=== PATIENT | male | born 1980 | race Caucasian/White ===

== ENCOUNTER 2017-10-15 14:49 | Emergency (ER) | payer BC ==
[2017-10-15 15:05] VITALS: BP 146/95
--- NOTE | 2017-10-15 15:11 | UC ---
Skin Complaint HPI - History of Current Complaint Chief Complaint: UCUpperExtremity Time Seen by Provider: 10/15/17 15:10 Stated Complaint: BUG BITE,INFLAMED Pain Intensity: 6 - Allergy/Home Medications Allergies/Adverse Reactions: Allergies Allergy/AdvReac Type Severity Reaction Status Date / Time No Known Allergies Allergy Verified 10/15/17 15:06 Home Medications: Home Medications Ibuprofen TAB* [Motrin TAB* 400 MG] 400 mg PO Q6H PRN 10/15/17 [History Confirmed 10/15/17] PMH/Surg Hx/FS Hx/Imm Hx Other History Of: Negative For: HIV, Hepatitis B, Hepatitis C, Anticoagulant Therapy - Surgical History Surgical History: None - Family History Known Family History: Positive: Hypertension Negative: Renal Disease, Blood Disorder - Social History Alcohol Use: Daily Alcohol Amount: 2 glasses of wine / day Substance Use Type: None Smoking Status (MU): Never Smoked Tobacco Physical Exam Vital Signs: Initial Vital Signs Temp 99.6 F 10/15/17 15:00 Pulse 83 10/15/17 15:00 Resp 16 10/15/17 15:00 BP 146/95 10/15/17 15:00 Pulse Ox 100 10/15/17 15:00 Discharge - Discharge Plan Referrals: No Primary Care Phys,NOPCP [Primary Care Provider] -
[2017-10-15] MEDS ORDERED: Ketorolac INJ* 60 MG/2 ML VIAL IM ONE (15:19)
--- NOTE | 2017-10-15 15:27 | UC ---
Skin Complaint HPI - HPI Summary HPI Summary: This pt is a 37 y/o male presenting to [facility] c/o right elbow pain, redness, and swelling. Pt reports his swelling has increased on right elbow. He additionally notes decreased ROM of right elbow and increased in warmth. He rates his pain 4/ 10 in severity. Denies weakness, numbness, fever. Pt also c/o right TMJ pain. Pt has taken ibuprofen and used ice for pain with minimal relief. - History of Current Complaint Chief Complaint: UCUpperExtremity Time Seen by Provider: 10/15/17 15:10 Stated Complaint: BUG BITE,INFLAMED Hx Obtained From: Patient Onset/Duration: Lasting Days, Still Present Current Severity: Moderate Pain Intensity: 4 Pain Scale Used: 0-10 Numeric Location: Other - R elbow Character: Swelling, Pain, Redness Aggravating Factor(s): Nothing Alleviating Factor(s): Nothing Associated Signs & Symptoms: Negative: Nausea, Vomiting, Weakness, Fever, Chills , Rash - Allergy/Home Medications Allergies/Adverse Reactions: Allergies Allergy/AdvReac Type Severity Reaction Status Date / Time No Known Allergies Allergy Verified 10/15/17 15:06 Review of Systems Constitutional: Negative Skin: Other - redness on R elbow, increase in warmth of R elbow Eyes: Negative ENT: Other - Right TMJ pain Respiratory: Negative Cardiovascular: Negative Gastrointestinal: Negative Genitourinary: Negative Motor: Negative Musculoskeletal: Arthralgia - R elbow, Decreased ROM - R elbow, Edema - R elbow Neurological: Negative Psychological: Negative All Other Systems Reviewed And Are Negative: Yes PMH/Surg Hx/FS Hx/Imm Hx Other Endocrine History: DENIES: diabetes Other Cardiovascular History: DENIES: HTN Other History Of: Negative For: HIV, Hepatitis B, Hepatitis C, Anticoagulant Therapy - Surgical History Surgical History: None - Family History Known Family History: Positive: Hypertension Negative: Renal Disease, Blood Disorder - Social History Alcohol Use: Daily Alcohol Amount: 2 glasses of wine / day Substance Use Type: None Smoking Status (MU): Never Smoked Tobacco Physical Exam - Summary Physical Exam Summary: VITAL SIGNS: Reviewed. GENERAL: Patient is a well-developed and nourished male who is lying comfortable in the stretcher. Patient is not in any acute respiratory distress. HEAD AND FACE: Normocephalic. Possible TMJ disorder on the right side. EYES: PERRLA, EOMI x 2. EARS: Hearing grossly intact. MOUTH: Oropharynx within normal limits. NECK: Supple, trachea is midline, no adenopathy, no JVD, no carotid bruit. CHEST: Symmetric, no tenderness at palpation LUNGS: Clear to auscultation bilaterally. No wheezing or crackles. CVS: Regular rate and rhythm, S1 and S2 present, no murmurs or gallops appreciated. ABDOMEN: Soft, non-tender. Bowel sounds are normal. No abdominal abnormal pulsations. EXTREMITIES: no cyanosis or clubbing. RUE: pt has swelling and erythema of right elbow. Pt has decreased ROM of right elbow. NEURO: Alert and oriented x 3. No acute neurological deficits. Speech is normal and follows commands. SKIN: Dry and warm. Triage Information Reviewed: Yes Vital Signs: Initial Vital Signs Temp 99.6 F 10/15/17 15:00 Pulse 83 10/15/17 15:00 Resp 16 10/15/17 15:00 BP 146/95 10/15/17 15:00 Pulse Ox 100 10/15/17 15:00 Vital Signs Reviewed: Yes Course/Dx - Course Course Of Treatment: Pt is a 37 y/o male presenting to [facility] c/o right elbow pain , redness, and swelling. Pt reports his swelling has increased on right elbow. He additionally notes decreased ROM of right elbow and increased in warmth. He rates his pain 4/10 in severity. Denies weakness, numbness, fever. Pt also c/o right TMJ pain. Pt has taken ibuprofen and used ice for pain with minimal relief. In the UC course the pt was given a Toradol injection. Pt will be discharged home with prescriptions for Keflex to treat cellulitis and ibuprofen for the pain. He was instructed to return to the urgent care or go to ER immediately if any of the symptoms return or worsens. Plan of care was discussed with the patient and pt understands and agrees. All questions were answered to patient satisfaction. There were no further complaints or concerns. Pt will be discharged to home with follow up from PCP. Pt is hemodynamically stable, alert and oriented x3. The patient was found to have increased blood pressure in UC. The patient will follow up with PCP for better control of BP. - Diagnoses Provider Diagnoses: 1. Cellulitis. 2. TMJ pain Discharge - Sign-Out/Discharge Documenting (check all that apply): Patient Departure - Discharge - Discharge Plan Condition: Stable Disposition: HOME Prescriptions: Cephalexin CAP* [Keflex CAP*] 500 mg PO QID #40 cap Ibuprofen TAB* [Motrin TAB* 600 MG] 600 mg PO Q8H PRN #30 tab PRN Reason: Pain Patient Education Materials: Cellulitis (ED), Temporomandibular Disorder (ED) Referrals: [facility] [Outside] No Primary Care Phys,NOPCP [Primary Care Provider] - Additional Instructions: Take medications as instructed and adhere to plan Take Acetaminophen or ibuprofen for pain or fever Increase your fluid intake Return to the or go to the emergency department if symptoms worsen Follow-up with primary care physician in next 2-3 days
== END 2017-10-15 16:08 | disposition home or self-care (01) ==
LOC: UCEAST 14:49
DX: L03.113 Cellulitis of right upper limb (principal); M26.621 Arthralgia of right temporomandibular joint; Z82.49 Family history of ischemic heart disease and other diseases of the circulatory system
CPT/HCPCS: 96372; 99211; G0463; J1885

== ENCOUNTER 2017-10-27 15:37 | Emergency (ER) | payer BC ==
[2017-10-27 15:48] VITALS: BP 141/99
--- NOTE | 2017-10-27 16:09 | UC ---
Upper Extremity HPI - HPI Summary HPI Summary: This is tomas Ray documenting for attending Paul Worley MD. This patient is a 37 year old M presenting to [facility] with a chief complaint of right elbow pain since a few days ago. The patient reports that he was seen here 12 days ago for cellulitis of his right elbow and finished his dose of 10 days of antibiotics 2 days ago. The patient rates the pain 2/10 in severity. Symptoms aggravated by nothing. Symptoms alleviated by nothing. Patient reports swelling and peeling of his right elbow. Patient denies fever. - History of Current Complaint Chief Complaint: UCUpperExtremity Stated Complaint: CELLUITIS RECHECK Time Seen by Provider: 10/27/17 16:00 Hx Obtained From: Patient Onset/Duration: Gradual Onset, Lasting Days, Still Present Severity Initially: Mild Severity Currently: Mild Pain Intensity: 2 Pain Scale Used: 0-10 Numeric Aggravating Factor(s): Nothing Alleviating Factor(s): Nothing Associated Signs And Symptoms: Positive: Swelling, Redness - Allergies/Home Medications Allergies/Adverse Reactions: Allergies Allergy/AdvReac Type Severity Reaction Status Date / Time No Known Allergies Allergy Verified 10/27/17 15:48 PMH/Surg Hx/FS Hx/Imm Hx Previously Healthy: Yes Other History Of: Negative For: HIV, Hepatitis B, Hepatitis C, Anticoagulant Therapy - Surgical History Surgical History: None - Family History Known Family History: Positive: Hypertension Negative: Renal Disease, Blood Disorder - Social History Alcohol Use: Daily Alcohol Amount: 2 glasses of wine / day Substance Use Type: None Smoking Status (MU): Never Smoked Tobacco Review of Systems Constitutional: Negative - negative fever Skin: Other - right elbow skin peeling Gastrointestinal: Negative - negative vomiting Musculoskeletal: Edema - swelling in right elbow, Myalgia - right elbow pain All Other Systems Reviewed And Are Negative: Yes Physical Exam - Summary Physical Exam Summary: General: well-appearing, no pain distress Skin: warm, color reflects adequate perfusion, dry. Right elbow swollen bursa 3cm diameter, raised, erythematous, fluctuant Head: normal Eyes: EOMI, SCARLET ENT: normal Neck: supple, nontender Respiratory: CTA, breath sounds present Cardiovascular: RRR Abdomen: soft, nontender Bowel: present Musculoskeletal: normal, strength/ROM intact, Neurological: sensory/motor intact, A&O x3 Psychological: affect/mood appropriate Triage Information Reviewed: Yes Vital Signs: Initial Vital Signs Temp 98.5 F 10/27/17 15:43 Pulse 64 10/27/17 15:43 Resp 16 10/27/17 15:43 BP 141/99 10/27/17 15:43 Pulse Ox 99 10/27/17 15:43 Vital Signs Reviewed: Yes Upper Extremity Course/Dx - Course Course Of Treatment: THE BURSITIS APPEARS TO STILL HAVE SOME CELLULITIS. WILL RX KEFLEX FOR 10 DAYS AND F/U ORTHOPEDICS TO DETERMINE FURTHER TREATMENT. RECHECK SOONER IF WORSE. - Differential Dx/Diagnosis Provider Diagnoses: RIGHT ELBOW BURSITIS Discharge - Sign-Out/Discharge Documenting (check all that apply): Patient Departure - Discharge Plan Condition: Stable Disposition: HOME Prescriptions: Cephalexin CAP* [Keflex CAP*] 500 mg PO QID #40 cap Patient Education Materials: Elbow Bursitis (ED) Referrals: [facility] [Provider Group] [facility] [place] [facility] [Outside] Kristin Carrera MD [Medical Doctor] - Additional Instructions: FOLLOW UP WITH ORTHOPEDICS. GET RECHECKED FOR ANY WORSENING OF YOUR CONDITION OR QUESTIONS OR CONCERNS. - Billing Disposition and Condition Condition: STABLE Disposition: Home
== END 2017-10-27 16:14 | disposition home or self-care (01) ==
LOC: UCEAST 15:37
DX: M70.31 Other bursitis of elbow, right elbow (principal)
CPT/HCPCS: 99212; G0463

== ENCOUNTER 2018-12-19 17:05 | Emergency (ER) | payer BC ==
--- NOTE | 2018-12-19 17:15 | UC ---
Lower Extremity/Ankle HPI - HPI Summary HPI Summary: 38 yo male presents with two complaints; 1) He tells me that on 12/14 he was playing soccer and tripped in a hole in the ground and plantar flexed his RIGHT foot/ankle. Brewster a pop and had immediate pain, but was able to continue playing. Over the next few hours developed swelling. He rested, iced, and elevated his ankle over the next few days with good improvement. Pain has since resolved, but there is still some swelling and his ankle feels weak overall. Denies numbness or tingling 2) LEFT knee - over the course of the last month has had periodic lateral left knee pain that is worse with going up and down stairs or running. Better with rest. No specific injury. - History of Current Complaint Stated Complaint: RT ANKLE INJURY, LEFT KNEE PAIN Time Seen by Provider: 12/19/18 17:14 Hx Obtained From: Patient Severity Initially: Moderate Severity Currently: Mild Pain Intensity: 2 Pain Scale Used: 0-10 Numeric - Allergies/Home Medications Allergies/Adverse Reactions: Allergies Allergy/AdvReac Type Severity Reaction Status Date / Time No Known Allergies Allergy Verified 10/27/17 15:48 Home Medications: Home Medications NK [No Home Medications Reported] 12/19/18 [History Confirmed 12/19/18] PMH/Surg Hx/FS Hx/Imm Hx - Additional Past Medical History Additional PMH: None Other History Of: Negative For: HIV, Hepatitis B, Hepatitis C, Anticoagulant Therapy - Surgical History Surgical History: None - Family History Known Family History: Positive: Hypertension Negative: Renal Disease, Blood Disorder - Social History Lives: With Family Alcohol Use: Daily Alcohol Amount: 2 glasses of wine / day Substance Use Type: None Smoking Status (MU): Never Smoked Tobacco Review of Systems All Other Systems Reviewed And Are Negative: No Constitutional: Positive: Negative Skin: Positive: Negative Respiratory: Positive: Negative Cardiovascular: Positive: Negative Neurovascular: Positive: Negative Musculoskeletal: Positive: Other: - Left knee pain. Right ankle pain. Neurological: Positive: Negative Psychological: Positive: Negative Physical Exam - Summary Physical Exam Summary: GENERAL: NAD. WDWN. No pain distress. SKIN: No rashes, sores, lesions, or open wounds. CHEST: No accessory muscle use. Breathing comfortably and in no distress. CV: Pulses intact PT and DP. Cap refill <2seconds MSK: RIGHT ANKLE: Mild edema about lateral malleolus and ATFL. FROM. Strength 5/ 5. No edema or obvious bony deformities. Negative talar tilt. No increased laxity. Negative Ogden test. LEFT KNEE: NTTP. FROM. Strength 5/5. No edema or obvious bony deformities. No patella apprehension. Negative Heri, A/P drawer, Mert, and varus/valgus stress. NEURO: Alert. Sensations intact and symmetric B/L LEs PSYCH: Age appropriate behavior. Triage Information Reviewed: Yes Vital Signs Reviewed: Yes Diagnostics - Radiology Ankle Radiology Interpretation Completed By: Radiologist Summary of Radiographic Findings: IMPRESSION: Soft tissue swelling laterally. No fracture is noted. Knee Radiology Interpretation Completed By: Radiologist Summary of Radiographic Findings: IMPRESSION: No fracture of the left knee is noted. No joint effusion is noted. Lower Extremity Course/Dx - Course Course Of Treatment: XRs negative. Regarding his RIGHT ankle - suspect an ankle sprain that is improving daily. Advised to continue RICE and conservative therapy. If symptoms do not continue to improve or if his pain returns to call Orthopedics at the number below to schedule an appt for a recheck. Regarding his LEFT knee - suspect overuse injury vs tendinitis vs meniscus injury. Given that his knee is intermittently painful and he reports it is improving since 1 month ago, recommended continued conservative treatment and f/ u with Orthopedics if symptoms do not continue improving. - Differential Dx/Diagnosis Provider Diagnosis: Ankle sprain, Left knee pain Discharge ED - Sign-Out/Discharge Documenting (check all that apply): Patient Departure All imaging exams completed and their final reports reviewed: Yes - Discharge Plan Condition: Stable Disposition: HOME Patient Education Materials: Ankle Sprain (ED), Knee Pain (ED) Referrals: No Primary Care Phys,NOPCP [Primary Care Provider] - [facility] [Provider Group] - If Needed Additional Instructions: If you develop a fever, shortness of breath, chest pain, new or worsening symptoms - please call your PCP or go to the ED immediately. 1) The X-rays of your knee and ankle were normal today. 2) I recommend that you continue rest, ice, and elevating your ankle and refrain from strenuous physical activities such as soccer for a total of 10-14 days 3) If your symptoms do not continue to improve or if your pain returns - please call [facility] at the number below to schedule an appointment for further evaluation - Billing Disposition and Condition Condition: STABLE Disposition: Home - Attestation Statements Provider Attestation: Per institutional requirements, I have reviewed the chart, however, I was not consulted specifically or made aware of this patient by the midlevel provider. I did not personally evaluate, interact with , or disposition this patient.
[2018-12-19 17:45] VITALS: BP 147/95
== END 2018-12-19 17:55 | disposition home or self-care (01) ==
LOC: UCEAST 17:05
DX: S93.401A Sprain of unspecified ligament of right ankle, initial encounter (principal); W17.2XXA Fall into hole, initial encounter; Y93.66 Activity, soccer; Y92.9 Unspecified place or not applicable; M25.562 Pain in left knee
CPT/HCPCS: 99211; G0463